=== PATIENT | male | born 1995 | race Caucasian/White ===

== ENCOUNTER 2017-10-09 18:45 | Emergency (ER) | payer BC ==
--- NOTE | 2017-10-09 20:06 | EDM.PDOC ---
ED HPI GENERAL MEDICAL PROBLEM - General Chief Complaint: General Stated Complaint: FEVER,COUGHING,SNEEZING Time Seen by Provider: 10/09/17 20:05 Source of Information: Reports: Patient History Limitations: Reports: No Limitations - History of Present Illness INITIAL COMMENTS - FREE TEXT/NARRATIVE: Chava is a pleasant 22yo male appears mildly ill. Presents to ED ambulatory with 3 day hx of headache, myalgias, cough evolving to sore throat, ear pain and diarrhea. He has been hot and cold but has not checked his temp. No vomiting but some nausea. He has been trying to push fluids but knows he is not drinking enough. He has minimal appetite. He did not get a flu shot this year. His brother recently was ill with "strep throat" and "the flu". He is otherwise healthy. Onset: Gradual Duration: Day(s): (3) Improves with: Reports: Rest Context: Reports: Sick Contact Associated Symptoms: Reports: Cough, Diaphoresis, Fever/Chills, Headaches, Loss of Appetite, Malaise. Denies: Chest Pain, cough w sputum, Nausea/Vomiting, Shortness of Breath, Syncope Treatments [employer]: Reports: NSAIDS Throat Pain Score (Numeric/FACES): 8 - Related Data Allergies Allergy/AdvReac Type Severity Reaction Status Date / Time cephalexin [From Keflex] Allergy Airway Verified 10/09/17 19:26 Tightness Penicillins Allergy Anaphylactic Verified 10/09/17 19:26 Shock Home Meds: Home Meds . [No Known Home Meds] 10/09/17 [History] Past Medical History - Past Surgical History HEENT Surgical History: Reports: LASIK GI Surgical History: Reports: Hernia, Inguinal Social & Family History - Family History Family Medical History: Noncontributory - Tobacco Use Smoking Status *Q: Never Smoker - Caffeine Use Caffeine Use: Reports: Coffee Other Caffeine Use: 2 cups of coffee a day - Recreational Drug Use Recreational Drug Use: No ED ROS GENERAL - Review of Systems Review Of Systems: See Below Constitutional: Reports: Chills, Malaise, Weakness, Fatigue Respiratory: Reports: Shortness of Breath, Cough Cardiovascular: Reports: No Symptoms GI/Abdominal: Reports: Diarrhea (x 2-3 days). Denies: Abdominal Pain, Bloody Stool, Constipation, Hematemesis, Hematochezia, Melena, Nausea : Reports: No Symptoms Musculoskeletal: Reports: No Symptoms Neurological: Reports: No Symptoms Psychiatric: Reports: No Symptoms ED EXAM, GENERAL - Physical Exam Exam: See Below Exam Limited By: No Limitations General Appearance: Alert, WD/WN, No Apparent Distress Eye Exam: Bilateral Eye: EOMI, PERRL (mild injection bilaterally) Ears: Normal External Exam, Normal Canal, Hearing Grossly Normal, Normal TMs Nose: Normal Inspection Throat/Mouth: Normal Lips, Normal Teeth, Normal Gums, Normal Voice, Other ( erythema of OP, no exudates noted) Head: Atraumatic, Normocephalic Neck: Lymphadenopathy (L) (anterior cervical), Lymphadenopathy (R) (anterior cervical) Respiratory/Chest: No Respiratory Distress, Lungs Clear, Normal Breath Sounds, Other (dry hacky cough) Cardiovascular: Regular Rate, Rhythm, No Edema, No Murmur GI/Abdominal: Normal Bowel Sounds, Soft (Male) Exam: Deferred Rectal (Males) Exam: Deferred Extremities: Normal Inspection, No Pedal Edema Neurological: Alert, Oriented, CN II-XII Intact, Normal Cognition, Normal Gait Psychiatric: Normal Affect, Normal Mood Skin Exam: Warm, Dry, Intact Course - Vital Signs Last Recorded V/S: Last Vital Signs Temp 100.0 F 10/09/17 19:26 Pulse 88 10/09/17 19:26 Resp 20 10/09/17 19:26 BP 137/81 10/09/17 19:26 Pulse Ox 100 10/09/17 19:26 - Orders/Labs/Meds Orders: Active Orders 24 hr Category Date Time Status CULTURE STREP A CONFIRMATION [] Stat Lab 10/09/17 19:54 Results STREP SCRN A RAPID W CULT CONF [RM] Stat Lab 10/09/17 19:54 Results Ibuprofen [Motrin] Med 10/09/17 20:54 Once 800 mg PO ONETIME ONE Oseltamivir [Tamiflu] Med 10/09/17 20:54 Once 75 mg PO ONETIME ONE Medication Orders Oseltamivir Phosphate (Tamiflu) 75 mg PO ONETIME ONE Stop: 10/09/17 20:55 Meds: Medications Generic Name Dose Route Start Last Admin Trade Name Freq PRN Reason Stop Dose Admin Oseltamivir Phosphate 75 mg 10/09/17 20:54 Tamiflu PO 10/09/17 20:55 ONETIME ONE - Re-Assessments/Exams Free Text/Narrative Re-Assessment/Exam: 10/09/17 20:17 strep screen and influenza screen obtained and pending. Free Text/Narrative Re-Assessment/Exam: 10/09/17 20:54 Flu A is +, strep screen is negative. Tamiflu 75mg PO x 1 ordered; will rx tamiflu BID x 5 days. Symptomatic tx will be reviewed with patient Departure - Departure Time of Disposition: 20:55 Disposition: Home, Self-Care 01 Condition: Good Clinical Impression: Influenza A - Discharge Information Referrals: PCP,Not In Area [Primary Care Provider] - Forms: ED Department Discharge Additional Instructions: Push fluids Tylenol 1,000mg 3 times daily and/or motrin 800mg 3 times daily with food No work or avoid contact with public x 5 days as you are contagious Rest Follow up with PCP if not improving or if worsening of symptoms in 4-5 days. Can return to ER if needed or if worsening. - My Orders Last 24 Hours: My Active Orders 10/09/17 20:54 Ibuprofen [Motrin] 800 mg PO ONETIME ONE Oseltamivir [Tamiflu] 75 mg PO ONETIME ONE - Assessment/Plan Last 24 Hours: My Active Orders 10/09/17 20:54 Ibuprofen [Motrin] 800 mg PO ONETIME ONE Oseltamivir [Tamiflu] 75 mg PO ONETIME ONE
[2017-10-09] MEDS ORDERED: Oseltamivir 75 MG Cap PO ONE (20:54)
[2017-10-09] MEDS ORDERED: Ibuprofen 800 MG Tab PO ONE (20:54)
== END 2017-10-09 21:00 | disposition home or self-care (01) ==
LOC: JD.ED 18:45
DX: J11.1 Influenza due to unidentified influenza virus with other respiratory manifestations (principal); Z88.0 Allergy status to penicillin; Z88.1 Allergy status to other antibiotic agents
CPT/HCPCS: 87081; 87430; 87804; 99283; A9270